=== PATIENT | male | born 1965 | race Hispanic/Latino ===

== ENCOUNTER 2021-07-22 13:40 | Inpatient (IN) | payer OTHER, SELFPAY ==
[2021-07-22 15:46] VITALS: BMI 30.6
[2021-07-22] MEDS ORDERED: Acetaminophen 650 MG Suppository PR PRN (16:43)
[2021-07-22] MEDS ORDERED: Ondansetron ODT 4 MG TAB PO PRN (16:43)
[2021-07-22] MEDS ORDERED: Ondansetron PF 4 MG/2 ML Vial IVP PRN (16:43)
[2021-07-22] MEDS ORDERED: Dextrose 50% Abboject 50 ML SYRINGE SLOW IVP PRN (17:06)
[2021-07-22] MEDS ORDERED: Dextrose 5% in Water 1,000 ML IV PRN (17:06)
[2021-07-22] MEDS ORDERED: Insulin Regular 300 UNITS/3 ML VIAL SC PRN (17:06)
[2021-07-22] MEDS: Morphine 2 MG/ML VIAL SLOW IVP PRN ×2 (17:34→20:27)
[2021-07-22] MEDS ORDERED: Piperacillin/Tazobactam 3.375 GM in Sodium Chloride 0.9% 100 ML IVPB SCH (18:00)
[2021-07-22] MEDS ORDERED: Vancomycin HCl 750 MG in Sodium Chloride 0.9% 250 ML 250 ML IVPB SCH (18:15)
[2021-07-22 18:32] LABS: #Eosinphils 0.2 thou/uL (0.0-0.7); #Lymphocytes 1.5 thou/uL (1.20-3.40); #Monocytes 1.1 thou/uL (0.11-0.59); #Neutrophils 11.1 thou/uL (1.40-6.50); %Basophils 0.3 % (0.0-1.0); %Eosinophils 1.4 % (0.0-10.0); %Monocytes 7.5 % (0.0-10.0); %Neutrophils 79.8 % (42.0-75.0); Hemoglobin 11.3 g/dL (14.0-18.0); Mean Corpuscular HGB CONC 32.9 g/dL (32.0-36.0); Mean Corpuscular Hemoglobin 30.6 pg (27.0-31.0); Mean Corpuscular Volume 93.2 fL (78.0-98.0); Mean Platelet Volume 7.1 fL (7.4-10.4); Platelet Count 363 thou/uL (130-400)
[2021-07-22 18:55] LABS: ALT (SGPT) Less than 7 U/L (8-55); AST (SGOT) 6 U/L (5-34); Alkaline Phosphatase 95 U/L (40-110); Anion Gap 11 mmol/L (10-20); BUN (Urea Nitrogen) 12 mg/dL (8.4-25.7); Bilirubin, Total 0.4 mg/dL (0.2-1.2); Calc. Creatinine Clearance 122 mL/min (70-130); Calcium 8.6 mg/dL (7.8-10.44); Carbon Dioxide 25 mmol/L (22-29); Chloride 104 mmol/L (98-107); Globulin 3.6 g/dL (2.4-3.5); Glucose 227 mg/dL (70-105); Potassium 4.4 mmol/L (3.5-5.1); Protein, Total 6.6 g/dL (6.0-8.3); Sodium 136 mmol/L (136-145)
[2021-07-22] MEDS: Piperacillin/Tazobactam 3.375 GM in Sodium Chloride 0.9% 100 ML IVPB SCH (20:25)
[2021-07-22 20:26] LABS: SARS-CoV-2 NAA Rapid Test Not Detected (NotDetected)
[2021-07-22] MEDS: Acetaminophen 325 MG TAB PO PRN (20:28)
[2021-07-23] MEDS: Piperacillin/Tazobactam 3.375 GM in Sodium Chloride 0.9% 100 ML IVPB SCH ×3 (03:11→18:48)
[2021-07-23] MEDS: Morphine 2 MG/ML VIAL SLOW IVP PRN ×3 (03:12→13:44)
[2021-07-23] MEDS: Acetaminophen 325 MG TAB PO PRN ×2 (06:33→15:03)
[2021-07-23 06:50] LABS: #Eosinphils 0.2 thou/uL (0.0-0.7); #Lymphocytes 1.7 thou/uL (1.20-3.40); #Neutrophils 11.3 thou/uL (1.40-6.50); %Basophils 0.2 % (0.0-1.0); %Eosinophils 1.5 % (0.0-10.0); %Lymphocytes 12.2 % (21.0-51.0); %Monocytes 6.9 % (0.0-10.0); %Neutrophils 79.3 % (42.0-75.0); Hemoglobin 11.7 g/dL (14.0-18.0); Mean Corpuscular HGB CONC 32.9 g/dL (32.0-36.0); Mean Corpuscular Volume 94.3 fL (78.0-98.0); Mean Platelet Volume 7.3 fL (7.4-10.4); Platelet Count 381 thou/uL (130-400); RBC Distribution Width 12.1 % (11.5-14.5); Red Blood Cell (RBC) Count 3.78 mill/uL (4.70-6.10); White Blood Cell (WBC) Count 14.3 thou/uL (4.8-10.8)
[2021-07-23 07:07] LABS: Hemoglobin A1c 8.2 % (4.0-6.0)
[2021-07-23 07:14] LABS: Anion Gap 12 mmol/L (10-20); BUN (Urea Nitrogen) 15 mg/dL (8.4-25.7); Calc. Creatinine Clearance 125 mL/min (70-130); Carbon Dioxide 24 mmol/L (22-29); Chloride 105 mmol/L (98-107); Glucose 155 mg/dL (70-105); Potassium 4.2 mmol/L (3.5-5.1); Sodium 137 mmol/L (136-145)
[2021-07-23] MEDS ORDERED: Lactated Ringer's 1,000 ML IV SCH (08:00)
[2021-07-23] MEDS: Vancomycin 1.5 GRAM/300 ML BAG 1.5 GM in Premix Bag 1 BAG IVPB SCH ×2 (09:08→19:59)
[2021-07-23] MEDS ORDERED: Morphine 4 MG/ML VIAL ONE (10:00)
[2021-07-23] MEDS ORDERED: fentaNYL Citrate/PF 100 MCG/2 ML SYRINGE ONE (10:15)
[2021-07-23] MEDS ORDERED: Dexmedetomidine 200 MCG/2 ML VIAL ONE (10:16)
[2021-07-23] MEDS ORDERED: Fentanyl 100 MCG/2 ML VIAL ONE ×2 (10:44→11:53)
[2021-07-23] MEDS ORDERED: PROPOFOL 200 MG/20 ML VIAL ONE (11:05)
[2021-07-23] MEDS ORDERED: Ondansetron PF 4 MG/2 ML Vial ONE (11:05)
[2021-07-23] MEDS ORDERED: Lidocaine 1% PF 5 ML VIAL ONE (11:05)
[2021-07-23] MEDS ORDERED: Morphine 4 MG/ML VIAL SLOW IVP PRN (15:30)
[2021-07-23] MEDS ORDERED: Morphine 4 MG/ML VIAL SLOW IVP SCH (15:30)
[2021-07-23] MEDS: Ketorolac Tromethamine 30 MG/ML VIAL IVP SCH (17:22)
[2021-07-23] MEDS: Morphine 4 MG/ML VIAL SLOW IVP PRN ×2 (19:15→21:49)
[2021-07-23 19:53] LABS: Vancomycin, Trough 11.9 ug/mL
[2021-07-23] MEDS: VANCOMYCIN 1.25 GM/250 ML BAG 1.25 GM in Premix Bag 1 BAG IVPB SCH (22:08)
[2021-07-24] MEDS: Ketorolac Tromethamine 30 MG/ML VIAL IVP SCH (00:13)
[2021-07-24] MEDS: Piperacillin/Tazobactam 3.375 GM in Sodium Chloride 0.9% 100 ML IVPB SCH ×3 (01:05→18:02)
[2021-07-24] MEDS: Morphine 4 MG/ML VIAL SLOW IVP PRN ×5 (02:18→20:22)
[2021-07-24] MEDS: VANCOMYCIN 1.25 GM/250 ML BAG 1.25 GM in Premix Bag 1 BAG IVPB SCH ×3 (05:01→21:34)
[2021-07-24 08:04] LABS: #Eosinphils 0.2 thou/uL (0.0-0.7); #Lymphocytes 1.5 thou/uL (1.20-3.40); #Monocytes 1.1 thou/uL (0.11-0.59); #Neutrophils 10.3 thou/uL (1.40-6.50); %Basophils 0.2 % (0.0-1.0); %Eosinophils 1.3 % (0.0-10.0); %Lymphocytes 11.2 % (21.0-51.0); %Monocytes 8.5 % (0.0-10.0); %Neutrophils 78.9 % (42.0-75.0); Hemoglobin 10.6 g/dL (14.0-18.0); Mean Corpuscular HGB CONC 32.7 g/dL (32.0-36.0); Mean Corpuscular Hemoglobin 30.9 pg (27.0-31.0); Mean Corpuscular Volume 94.3 fL (78.0-98.0); Mean Platelet Volume 7.3 fL (7.4-10.4); Platelet Count 351 thou/uL (130-400); Red Blood Cell (RBC) Count 3.45 mill/uL (4.70-6.10); White Blood Cell (WBC) Count 13.1 thou/uL (4.8-10.8)
[2021-07-24 08:15] LABS: Anion Gap 11 mmol/L (10-20); BUN (Urea Nitrogen) 10 mg/dL (8.4-25.7); Calc. Creatinine Clearance 137 mL/min (70-130); Calcium 8.5 mg/dL (7.8-10.44); Carbon Dioxide 26 mmol/L (22-29); Chloride 104 mmol/L (98-107); Glucose 129 mg/dL (70-105); Potassium 4.4 mmol/L (3.5-5.1); Sodium 137 mmol/L (136-145)
[2021-07-24] MEDS: HYDROcodone/Acetaminophen 5/325 mg Tablet PO PRN ×2 (18:02→23:55)
[2021-07-24] MEDS: Gabapentin 300 MG CAP PO SCH (20:18)
[2021-07-24] MEDS: Metoprolol Tartrate 50 MG TAB PO SCH (20:18)
[2021-07-24] MEDS ORDERED: Cefepime 2 GM in Sodium Chloride 0.9% 100 ML IVPB SCH (21:00)
[2021-07-24 21:45] LABS: Vancomycin, Trough 16.3 ug/mL
[2021-07-25] MEDS: Piperacillin/Tazobactam 3.375 GM in Sodium Chloride 0.9% 100 ML IVPB SCH ×3 (02:43→17:57)
[2021-07-25] MEDS: Morphine 4 MG/ML VIAL SLOW IVP PRN ×3 (02:43→17:57)
[2021-07-25] MEDS: VANCOMYCIN 1.25 GM/250 ML BAG 1.25 GM in Premix Bag 1 BAG IVPB SCH ×3 (05:22→22:41)
[2021-07-25] MEDS: HYDROcodone/Acetaminophen 5/325 mg Tablet PO PRN ×3 (05:47→21:10)
[2021-07-25 07:36] LABS: #Eosinphils 0.1 thou/uL (0.0-0.7); #Lymphocytes 1.7 thou/uL (1.20-3.40); #Monocytes 0.9 thou/uL (0.11-0.59); #Neutrophils 9.2 thou/uL (1.40-6.50); %Basophils 0.3 % (0.0-1.0); %Eosinophils 1.2 % (0.0-10.0); %Lymphocytes 14.3 % (21.0-51.0); %Monocytes 7.7 % (0.0-10.0); %Neutrophils 76.5 % (42.0-75.0); Hemoglobin 10.2 g/dL (14.0-18.0); Mean Corpuscular HGB CONC 32.6 g/dL (32.0-36.0); Mean Corpuscular Hemoglobin 30.6 pg (27.0-31.0); Mean Corpuscular Volume 93.9 fL (78.0-98.0); Mean Platelet Volume 7.2 fL (7.4-10.4); Platelet Count 349 thou/uL (130-400); RBC Distribution Width 11.9 % (11.5-14.5); Red Blood Cell (RBC) Count 3.33 mill/uL (4.70-6.10); White Blood Cell (WBC) Count 12.1 thou/uL (4.8-10.8)
[2021-07-25 07:59] LABS: Anion Gap 12 mmol/L (10-20); BUN (Urea Nitrogen) 5 mg/dL (8.4-25.7); Calc. Creatinine Clearance 130 mL/min (70-130); Calcium 8.4 mg/dL (7.8-10.44); Carbon Dioxide 24 mmol/L (22-29); Chloride 102 mmol/L (98-107); Glucose 191 mg/dL (70-105); Sodium 134 mmol/L (136-145)
[2021-07-25] MEDS: Gabapentin 300 MG CAP PO SCH ×3 (09:26→21:09)
[2021-07-25] MEDS: Enoxaparin Sodium 40 MG/0.4 ML SYRINGE SC SCH (09:26)
[2021-07-25] MEDS: Atorvastatin Calcium 20 MG TAB PO SCH (09:26)
[2021-07-25] MEDS: Metoprolol Tartrate 50 MG TAB PO SCH ×2 (09:26→21:10)
[2021-07-25] MEDS: Tamsulosin HCl 0.4 MG CAP PO SCH (09:26)
[2021-07-25] MEDS: Polyethylene Glycol 3350 17 GM Packet PO PRN (18:03)
[2021-07-25 21:35] LABS: Vancomycin, Trough 25.3 ug/mL
[2021-07-26] MEDS: Piperacillin/Tazobactam 3.375 GM in Sodium Chloride 0.9% 100 ML IVPB SCH ×3 (01:32→18:19)
[2021-07-26] MEDS: HYDROcodone/Acetaminophen 5/325 mg Tablet PO PRN ×2 (05:04→23:11)
[2021-07-26] MEDS: Vancomycin 1 GM in Premix Bag 1 BAG IVPB SCH ×4 (05:56→22:22)
[2021-07-26 07:03] LABS: #Eosinphils 0.1 thou/uL (0.0-0.7); #Lymphocytes 1.3 thou/uL (1.20-3.40); #Monocytes 1.2 thou/uL (0.11-0.59); #Neutrophils 9.8 thou/uL (1.40-6.50); %Basophils 0.3 % (0.0-1.0); %Eosinophils 1.1 % (0.0-10.0); %Lymphocytes 10.6 % (21.0-51.0); %Monocytes 9.6 % (0.0-10.0); %Neutrophils 78.4 % (42.0-75.0); Hemoglobin 10.1 g/dL (14.0-18.0); Mean Corpuscular HGB CONC 32.8 g/dL (32.0-36.0); Mean Corpuscular Hemoglobin 30.7 pg (27.0-31.0); Mean Corpuscular Volume 93.6 fL (78.0-98.0); Mean Platelet Volume 7.2 fL (7.4-10.4); Platelet Count 347 thou/uL (130-400); RBC Distribution Width 11.9 % (11.5-14.5); White Blood Cell (WBC) Count 12.5 thou/uL (4.8-10.8)
[2021-07-26 07:31] LABS: Anion Gap 13 mmol/L (10-20); BUN (Urea Nitrogen) 9 mg/dL (8.4-25.7); Calc. Creatinine Clearance 84 mL/min (70-130); Calcium 8.7 mg/dL (7.8-10.44); Carbon Dioxide 24 mmol/L (22-29); Chloride 104 mmol/L (98-107); Glucose 163 mg/dL (70-105); Potassium 3.7 mmol/L (3.5-5.1); Sodium 137 mmol/L (136-145)
[2021-07-26] MEDS: Atorvastatin Calcium 20 MG TAB PO SCH (09:22)
[2021-07-26] MEDS: Gabapentin 300 MG CAP PO SCH ×3 (09:22→21:39)
[2021-07-26] MEDS: Metoprolol Tartrate 50 MG TAB PO SCH ×2 (09:22→21:39)
[2021-07-26] MEDS: Enoxaparin Sodium 40 MG/0.4 ML SYRINGE SC SCH (09:22)
[2021-07-26] MEDS: Tamsulosin HCl 0.4 MG CAP PO SCH (09:22)
[2021-07-26] MEDS ORDERED: Iopamidol 370 76% 50 ML VIAL FS ONE (09:38)
[2021-07-26] MEDS: Morphine 4 MG/ML VIAL SLOW IVP PRN (10:32)
[2021-07-26] MEDS ORDERED: Lidocaine 1% (PF) 30 ML VIAL ONE (12:17)
[2021-07-26] MEDS ORDERED: Midazolam HCl 2 mg/2 ml Vial ONE ×2 (12:53→13:13)
[2021-07-26] MEDS ORDERED: Fentanyl 100 MCG/2 ML VIAL ONE ×3 (12:53→19:58)
[2021-07-26] MEDS ORDERED: Vancomycin 1 GM/200 ML BAG ONE (17:46)
[2021-07-26] MEDS ORDERED: fentaNYL Citrate/PF 100 MCG/2 ML SYRINGE ONE ×2 (17:49)
[2021-07-26] MEDS ORDERED: Sodium Chloride 0.9% 1,000 ML IV SCH (18:00)
[2021-07-26] MEDS ORDERED: ePHEDrine 50 MG/ML VIAL ONE (18:17)
[2021-07-26] MEDS ORDERED: Lidocaine 1% PF 5 ML VIAL ONE (18:17)
[2021-07-26] MEDS ORDERED: Ondansetron PF 4 MG/2 ML Vial ONE (18:17)
[2021-07-26] MEDS ORDERED: PROPOFOL 200 MG/20 ML VIAL ONE (18:17)
[2021-07-26] MEDS ORDERED: PHENYLEPHRINE-NS 100 MCG/ML 10 ML SYRINGE ONE (18:17)
[2021-07-26] MEDS ORDERED: Ropivacaine 0.5% HCl/PF (150 MG/30 ML VIAL) ONE (18:17)
[2021-07-26] MEDS ORDERED: Ondansetron HCl/PF 4 MG/2 ML Vial IVP PRN (19:17)
[2021-07-26] MEDS ORDERED: Promethazine HCl 25 MG/ML VIAL IM PRN (19:17)
[2021-07-26] MEDS ORDERED: Promethazine HCl 25 MG/ML VIAL IVPB PRN (19:17)
[2021-07-26] MEDS ORDERED: Ketorolac Tromethamine 30 MG/ML VIAL IVP PRN (19:17)
[2021-07-26] MEDS ORDERED: HYDROmorphone 2 MG/ML VIAL SLOW IVP PRN (19:17)
[2021-07-26] MEDS ORDERED: HYDROmorphone 0.5 MG/0.5 ML SYRINGE ONE ×3 (19:39→20:30)
[2021-07-26] MEDS ORDERED: Ketorolac Tromethamine 30 MG/ML VIAL ONE (20:22)
[2021-07-27] MEDS: Piperacillin/Tazobactam 3.375 GM in Sodium Chloride 0.9% 100 ML IVPB SCH ×3 (02:01→17:15)
[2021-07-27] MEDS: Insulin Regular 300 UNITS/3 ML VIAL SC PRN ×3 (05:17→17:15)
[2021-07-27] MEDS: HYDROcodone/Acetaminophen 5/325 mg Tablet PO PRN ×4 (05:17→19:07)
[2021-07-27] MEDS: Morphine 4 MG/ML VIAL SLOW IVP PRN ×2 (05:38→17:20)
[2021-07-27] MEDS ORDERED: VANCOMYCIN 1.25 GM/250 ML BAG 1.25 GM in Premix Bag 1 BAG IVPB SCH (06:00)
[2021-07-27 06:17] LABS: #Eosinphils 0.1 thou/uL (0.0-0.7); #Lymphocytes 1.5 thou/uL (1.20-3.40); #Monocytes 0.9 thou/uL (0.11-0.59); #Neutrophils 7.9 thou/uL (1.40-6.50); %Basophils 0.2 % (0.0-1.0); %Lymphocytes 14.2 % (21.0-51.0); %Monocytes 8.7 % (0.0-10.0); %Neutrophils 75.9 % (42.0-75.0); Hemoglobin 9.3 g/dL (14.0-18.0); Mean Corpuscular HGB CONC 32.2 g/dL (32.0-36.0); Mean Corpuscular Hemoglobin 30.4 pg (27.0-31.0); Mean Corpuscular Volume 94.3 fL (78.0-98.0); Mean Platelet Volume 7.3 fL (7.4-10.4); Platelet Count 359 thou/uL (130-400); RBC Distribution Width 11.9 % (11.5-14.5); Red Blood Cell (RBC) Count 3.07 mill/uL (4.70-6.10); White Blood Cell (WBC) Count 10.4 thou/uL (4.8-10.8)
[2021-07-27 06:28] LABS: Anion Gap 12 mmol/L (10-20); BUN (Urea Nitrogen) 14 mg/dL (8.4-25.7); Calc. Creatinine Clearance 59 mL/min (70-130); Calcium 8.6 mg/dL (7.8-10.44); Carbon Dioxide 27 mmol/L (22-29); Chloride 102 mmol/L (98-107); Glucose 176 mg/dL (70-105); Potassium 3.7 mmol/L (3.5-5.1); Sodium 137 mmol/L (136-145)
[2021-07-27] MEDS: Atorvastatin Calcium 20 MG TAB PO SCH (09:17)
[2021-07-27] MEDS: Tamsulosin HCl 0.4 MG CAP PO SCH (09:18)
[2021-07-27] MEDS: Enoxaparin Sodium 40 MG/0.4 ML SYRINGE SC SCH (09:18)
[2021-07-27] MEDS: Gabapentin 300 MG CAP PO SCH ×3 (09:18→20:25)
[2021-07-27] MEDS: Metoprolol Tartrate 50 MG TAB PO SCH ×2 (09:18→20:24)
[2021-07-27] MEDS: Polyethylene Glycol 3350 17 GM Packet PO PRN (11:42)
[2021-07-27 20:40] LABS: Vancomycin, Random 17.9 ug/mL (See Comment)
[2021-07-28] MEDS: Piperacillin/Tazobactam 3.375 GM in Sodium Chloride 0.9% 100 ML IVPB SCH (01:59)
[2021-07-28] MEDS: HYDROcodone/Acetaminophen 5/325 mg Tablet PO PRN ×3 (02:03→13:29)
[2021-07-28] MEDS: Insulin Regular 300 UNITS/3 ML VIAL SC PRN ×3 (06:06→16:50)
[2021-07-28] MEDS: Enoxaparin Sodium 40 MG/0.4 ML SYRINGE SC SCH (08:49)
[2021-07-28] MEDS: Gabapentin 300 MG CAP PO SCH ×2 (08:49→14:12)
[2021-07-28] MEDS: Tamsulosin HCl 0.4 MG CAP PO SCH (08:49)
[2021-07-28] MEDS: Atorvastatin Calcium 20 MG TAB PO SCH (08:49)
[2021-07-28] MEDS: Metoprolol Tartrate 50 MG TAB PO SCH (08:49)
[2021-07-28] MEDS: Morphine 4 MG/ML VIAL SLOW IVP PRN (16:40)
[2021-07-28 16:54] VITALS: BP 138/80; TEMP 98.3
== END 2021-07-28 17:12 | disposition home or self-care (01) | DRG 853 ==
LOC: EDBD 15:02 → T4-B 15:02
PROVIDERS: ADMIT Family Medicine; ATTEND Internal Medicine
PROC: 3E03329 Introduction of Other Anti-infective into Peripheral Vein, Percutaneous Approach (ICD-10-PCS; principal; 2021-07-22)
PROC: 0Y6S0Z1 Detachment at Left 2nd Toe, High, Open Approach (ICD-10-PCS; 2021-07-23)
PROC: 0Y6J0Z1 Detachment at Left Lower Leg, High, Open Approach (ICD-10-PCS; 2021-07-26)
PROC: B41D1ZZ Fluoroscopy of Aorta and Bilateral Lower Extremity Arteries using Low Osmolar Contrast (ICD-10-PCS; 2021-07-26)
DX: A41.9 Sepsis, unspecified organism (principal); A48.0 Gas gangrene; M86.8X7 Other osteomyelitis, ankle and foot; E11.52 Type 2 diabetes mellitus with diabetic peripheral angiopathy with gangrene; E11.69 Type 2 diabetes mellitus with other specified complication; F10.11 Alcohol abuse, in remission; E11.628 Type 2 diabetes mellitus with other skin complications; L03.032 Cellulitis of left toe; N40.0 Benign prostatic hyperplasia without lower urinary tract symptoms; B96.5 Pseudomonas (aeruginosa) (mallei) (pseudomallei) as the cause of diseases classified elsewhere; B95.5 Unspecified streptococcus as the cause of diseases classified elsewhere; I99.8 Other disorder of circulatory system; I10 Essential (primary) hypertension; E78.5 Hyperlipidemia, unspecified; E11.40 Type 2 diabetes mellitus with diabetic neuropathy, unspecified; E11.621 Type 2 diabetes mellitus with foot ulcer; L97.529 Non-pressure chronic ulcer of other part of left foot with unspecified severity; Z20.822 Contact with and (suspected) exposure to COVID-19; Z87.891 Personal history of nicotine dependence; Z79.82 Long term (current) use of aspirin; Z79.899 Other long term (current) drug therapy; Z79.891 Long term (current) use of opiate analgesic
CPT/HCPCS: 36011; 36246; 36415; 36416; 80048; 80053; 80202; 83036; 85025; 87070; 87076; 87077; 87186; 87205; 88305; 88307; 93005; 93010; 93923; 99152; J1170; J1650; J1815; J1885; J2001; J2250; J2270; J2405; J2543; J2704; J2795; J3010; J3370; J3490; J7050; J7120; Q9967; U0002